=== PATIENT | female | born 1985 | race Caucasian/White ===

== ENCOUNTER 2021-02-17 09:10 | Outpatient (REF) | payer OTHER, SELFPAY | END 2021-02-17 09:11 | disposition home or self-care (01) | LOC: HO.HMGCLDS 09:10 | PROVIDERS: Visit Provider Internal Medicine | DX: Z20.822 Contact with and (suspected) exposure to COVID-19 (principal) | CPT/HCPCS: C9803; U0003; U0005 ==

== ENCOUNTER → 2021-08-06 09:24 | Outpatient (BNVA) | payer OTHER, SELFPAY | PROVIDERS: PCP Internal Medicine; Visit Provider Nurse Practitioner Family | DX: R20.0 Anesthesia of skin (principal); R20.2 Paresthesia of skin; M54.2 Cervicalgia; G43.109 Migraine with aura, not intractable, without status migrainosus; R29.898 Other symptoms and signs involving the musculoskeletal system | CPT/HCPCS: 99202 ==

== ENCOUNTER 2021-12-16 08:30 | Outpatient (REF) | payer OTHER, SELFPAY ==
--- NOTE | 2021-12-16 | EMG_ITS ---
Bilateral median and ulnar motor and sensory studies were performed. Bilateral radial and sensory studies were performed and paraspinal muscles were tested with a needle. IMPRESSION: This is an unremarkable study with no significant abnormality noted. MD TEJINDER Whitman/CAROLANN / [id number]
== END 2021-12-16 08:31 | disposition home or self-care (01) ==
LOC: HO.NEURO 08:30
PROVIDERS: Visit Provider Nurse Practitioner Family
DX: R20.0 Anesthesia of skin (principal); R20.2 Paresthesia of skin; R29.898 Other symptoms and signs involving the musculoskeletal system
CPT/HCPCS: 95886; 95911

== ENCOUNTER 2025-01-21 10:01 | Outpatient (AMB) | payer OTHER, SELFPAY ==
--- NOTE | 2025-01-21 10:04 | A.OFFVIS_ITS ---
Vital Signs 01/21/25 10:06 Height 5 ft 4 in BMI Reason not done Patient refused/unable BP 100/60 Blood Pressure Location Rt brachial Position Sitting Pulse 66 Pulse Source Pulse Oximeter Pulse Oximetry (%) 99 Oxygen Delivery Method Room Air Intake Visit Reasons: Hashimotos Intake Note: NEW Patient presents today to establish care for Hashimotos Disease: No acute complaints reported at this time. 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: No Accompanied by: Self / Same As Patient Allergies iodine Allergy (Verified 08/06/21 09:50) Unknown latex Allergy (Verified 08/06/21 09:50) Unknown oxycodone Allergy (Unverified 12/02/21 09:13) Unknown dairy Allergy (Uncoded 08/06/21 09:50) Unknown Medication List - Last Reconciled 01/21/25 by Jacoby Marin MD fexofenadine 180 mg PO DAILY fluticasone propionate 50 mcg/actuation 2 sprays intranasal QAM PRN thyroid (pork) ([place] Thyroid) 66 mg PO DAILY HPI Comments Details: Hypothyroidism Visit Visit type: New Reason for visit: Hypothyroidism HPI She was diagnosed with Sharron's thyroiditis at age 28, initially experienced fatigue, brain fog, and tiredness despite normal blood work. After endocrinological evaluation, hypothyroidism was confirmed, and patient was started on Synthroid with dose adjustments up to 88 mcg (she did endorse not tolarating generic levothyroxine). Symptoms improved, and patient was discharged to primary care. Recently, symptoms recurred, including fatigue, itchy cough, difficulty swallowing, hair loss, irregular menstrual cycles, and weight gain. Currently on [place] Thyroid, 66 mg for two months with some improvement but ongoing fatigue. Patient reports taking Vitamin D, C, and B vitamins. No recent lab updates since September. History includes irregular periods, stress from job change, and past medical issues like aneurysm, ovarian cysts, and uterine complications during childbirth. Associated Symptoms:Denies snoring, reports sleep talking. History of hair loss, weight gain (16 pounds since summer), and increased stress. Physical exam General: Normal appearance Neck: Normal thyroid size, no nodules, no tenderness Eyes: No proptosis, lid lag, or periorbital edema CV: RRR, no murmur. No edema. Resp: Lungs clear to auscultation bilaterally Skin/Hair: no dry skin, hair thinning, or pretibial myxedema Neuro: No tremor of outstretched hands, no weakness Data Review Labs from referral 10/26/2024 10:23 EDT BLOOD COUNT & DIFF WBC 4.7 RBC 4.2 Hgb 13.2 Hct 39.0 MCV 93 MCH 31.4 MCHC 33.7 Platelet Count 126 Abs. Neut 2.6 Abs. Lymph 1.5 Abs. [place] 0.3 Abs. Eos 0.1 Abs. Baso 0.0 % Neut 56 % Lymph 31 % [place] 10 % Eos 3 % Baso 1 Immature Grans 0 % Imm Grans 0.0 BLOOD CHEMISTRY Sodium 141 Potassium 4.2 Chloride 104 Bicarbonate Level 27 Glucose 90 BUN 12 Creatinine-Serum 0.70 Estimated GFR Creatinine 112 Calcium, Total 9.6 Albumin 4.5 Alkaline Phosphatase 46 AST (SGOT) 19 ALT (SGPT) 17 Total Bilirubin 0.5 Iron 51 Uric Acid 4.6 Iron Binding Capacity, Unsaturated 171 Iron Binding Capacity, Estimated Total 322 % Iron Saturation 16 BUN/Creat Ratio 17 ENDOCRINE/TUMOR MARKER TSH 2.190 2.220 Anti Thyroid Peroxidase Ab 36 H Free Testosterone, Bioavailable (ng/dL) 8.7 SHBG 60* Cortisol Level 61* Testosterone, Serum Total 11* Imaging: US previously done, not available for review [facility] Medical History (Updated 01/21/25 @ 11:50 by Jacoby Marin MD) History of Papanicolaou smear of cervix Weight gain Venous henning Uterine fibroid Tension headache Restless leg PCB (post coital bleeding) Panic attack Overweight Oligomenorrhea Migraine Lumbosacral disc herniation Labial hypertrophy Intracranial aneurysm Sharron thyroiditis Left groin mass History of gastroesophageal reflux (GERD) Gallbladder sludge Frequent headaches Food allergy Bunion Anxiety disorder Allergic rhinitis Acne Surgical History (Updated 01/14/25 @ 08:48 by HAILY Sweeney) History of esophagogastroduodenoscopy (EGD) Hx of colonoscopy Hx of dilation and curettage Hx of tonsillectomy Hx of section Hx of bilateral salpingectomy History of surgery Family History (Updated 01/14/25 @ 08:48 by HAILY Sweeney) Father Hyperlipidemia Mother No problems noted. 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 Patient currently on [place] Thyroid 66 mg with partial symptom improvement. but given that is a recent change of her medication, some adjustment in the dosing might still be required to achieve full benefit. Symptoms include fatigue, weight gain, and hair loss. She reports irregular menstrual cycles that appear to be long-standing issue, of unclear etiology but differentia;l includes possible gynecological or related to thyroid condition or other hormonal imbalances (PCOS, central hypogomadism, premature ovarian failure). Fatigue: is persistent despite thyroid treatment, possibly multifactorial including stress, sleep issues, or incomplete hormonal management. Plan: - Order thyroid function tests, including T3, T4, and TSH, to evaluate current thyroid status. - Test gonadotropins (LH, FSH) and estradiol levels to assess ovarian function. - Review MRI records related to the patient's aneurysm if available. - Arrange for the release and review of previous thyroid ultrasound results. - Discuss the possibility of a sleep study if fatigue persists after endocrine evaluation. - Advise patient to bring or photograph all supplements and medications for review at the next visit. - Schedule a follow-up appointment in two months to review lab results and assess the effectiveness of the current treatment plan. - Continue [place] Thyroid, advise taking on an empty stomach, possibly at night to avoid interference with other medications and supplements. - Address any lifestyle factors contributing to stress and fatigue, including considering counseling or stress management strategies. - Educate the patient on the importance of consistent medication adherence and proper timing for optimal absorption. Patient Instructions: - Continue taking [place] Thyroid as prescribed, away from other supplements or food. - Return for lab tests and follow-up as scheduled. - Monitor for any new or worsening symptoms and report them promptly. - Maintain a balanced diet and manage stress as best as possible. - Prepare for the possibility of additional tests or referrals based on upcoming lab results. 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
[2025-01-21 10:06] VITALS: BP 100/60; PULSE 66; O2SAT 99
--- OUTSIDE RECORDS SUMMARY | 2025-01-21 12:04 | XMS_ITS | Clinical Summary ---
Author Organization [facility] Address [address] [place] [address] Phone Care Team Providers Care Social Media Coordinator Name Role Phone Matilda Zamudio MD Primary Care Provider [phone] Allergies Active Allergy Reactions Criticality Noted Date Comments Amoxicillin-Pot Clavulanate Low 05/29/19 22 Other Reaction(s): Hives/Urticaria Latex 05/03/2019 Oxycodone 05/03/2019 Oxycodone-Acetaminophen Itching Low 05/28/2021 Medications ergotamine-caff eine (CAFERGOT) 1-100 mg per tablet Take 2 Tablets by mouth See Admin Instructions for 60 doses. Two tablets at onset of attack; then 1 tablet every 30 minutes as needed; maximum: 6 tablets per attack; do not exceed 10 tablets/week 3 Active LORazepam (ATIVAN) 0.5 mg tablet Take 0.5 mg by mouth every 6 hours as needed. Active omega-3 acid ethyl esters (LOVAZA) 1 gram capsule Take by mouth. Activ e selenium sulfide 2.3 % shampoo Apply topically. Act pavan ZINC SULFATE ORAL Zinc Sulfate 140 (50 Zn) MG Tab Sig - Route: Take by mouth. - Oral Active fluconazole (DIFLUCAN) 150 mg tablet Take 1 tablet weekly for 4 weeks 0 Active ketoconazole (NIZORAL) 2 % shampoo Lather in scalp and let sit for 10 minutes, then wash off. Use daily for the first week, then 1-2 times weekly thereafter 0 Active benzonatate (TESSALON) 100 mg capsule TAKE 1 CAPSULE BY MOUTH THREE TIMES A DAY FOR 7 DAYS NEEDED FOR COUGH 5 Active Synthroid 88 mcg tablet Take 1 tablet (88 mcg total) by mouth 1 (one) time each day. 4 Active loratadine (CLARITIN) 10 mg tablet Take 1 tablet (10 mg total) by mouth 1 (one) time each day. 5 Active Synthroid 112 mcg tablet 5 Active Active Problems Problem Noted Date Diagnosed Date JOSHUA (generalized anxiety disorder) 03/27/2024 GERD (gastroesophageal reflux disease) 5 Hypothyroidism 03/27/2024 RLS (restless legs syndrome) 03/27/2024 Cerebral aneurysm without rupture 05/28/2021 Overview (03/27/2024): Last Assessment & Plan: Ms. Galindo has had routine follow-up for this right MCA aneurysm for over 5 years. A positive family history is her only risk factor and this aneurysm has remained stable on all imaging including the most recent one 6 weeks ago. We discussed the natural history of an unruptured aneurysm of this size, the risk associated with rupture and the potential mode of treatment. She and Dr. Galvez had discussed an angiogram to determine if it was eligible for coiling but on this most recent high-quality MRA, I do not think it is amenable based on the wide neck and that the right M2 originates from the aneurysm. We are going to continue following this with yearly imaging and she is not interested in pursuing treatment at this time. Chronic bilateral low back pain with bilateral s ciatica 05/28/2021 Overview (03/27/2024): Last Assessment & Plan: Ms. Galindo is overwhelmed by this low back pain with paresthesias to her legs. She is failed physical therapy, has had 3 fairly recent epidural injections and continues to seek chiropractic treatment weekly. She could no longer tolerate doing her job as she would be in one position either sitting or standing for an hour or two at a time, was overwhelmed by the paresthesias in her legs so she quit her job last week. What she has described is not typical of a single level disc herniation or central stenosis. I suspect there is degenerative disc disease but the lumbar spine images are not currently available and I do not even have a report. Once we are able to review the images, I will contact her to come up with a plan. Encounters Date Type Department Care Team Description 11/04/2024 Telephone [facility] [place] [id number] [place] [address] Elvia Hernandez PA from Last 3 Months Surgical History Surgery Date Site/Laterality Comments SALPINGOOPHORECTOMY PROCEDURE: ME LAPAROSCOPY W/RMVL ADNEXAL STRUCTURES SECTION PROCEDURE: HISTORICAL TONSILLECTOMY PROCEDURE: HISTORICAL TONSILLECTOMY SALPINGOOPHORECTOMY PROCEDURE: ME LAPAROSCOPY W/RMVL ADNEXAL STRUCTURES Medical History Medical History Date Comments JOSHUA (generalized anxiety disorder) DX:JOSHUA (generalized anxiety disorder) GERD (gastroesophageal reflux disease) DX:GERD (gastroesophageal reflux disease) Hypothyroidism DX:Hypothyroidis m RLS (restless legs syndrome) DX: RLS (restless legs syndrome) Restless leg syndrome DX:Restles s leg syndrome Social History Tobacco Use Types Packs/Day Years Used Date Smoking Tobacco: Never Smokeless Tobacco: Never Comments Unknown Sex and Gender Information Value Date Recorded Sex Assigned at Female 05/17/2024 10:40 AM EDT Legal Sex Female 7:24 AM EST Gender Identity Female 05/17/2024 10:40 AM EDT Sexual Orientation Straight 05/17/2024 10 :40 AM EDT Obstetrics History Last Filed Vital Signs Vital Sign Reading Time Taken Comments Blood Pressure - - Pulse - - Temperature - - Respiratory Rate - - Oxygen Saturation - - Inhaled Oxygen Concentration - - Weight 68.9 kg (152 lb) 04/19/2024 11:32 AM EST Height 162.6 cm (5' 4 ) 04/19/2024 11:32 AM EST Body Mass Index 26.09 04/19/2024 11:32 AM EST Plan of Treatment Health Maintenance Due Date Last Done Comments Breast Cancer Screening 1984 Hepatitis B Vaccines (1 of 3 - 19+ 3-dose series) 09/05/2003 Cervical Cancer Screening: P ap Smear 2005 HPV Vaccines (1 - 3-dose SCD M series) 09/05/2011 HIV Screening 01/30/2022 Hepatitis C Screening 01/30/2022 Social Influencers of Health Screening 01/30/2022 DTaP,Tdap,and Td Vaccines (2 - Td or Tdap) 08/20/2022 08/20/2012 Depression Screening 02/28/2024 COVID-19 Vaccine (1 - 2024-2 6 season) 2024 Influenza Vaccine (#1) 2024 RSV Immunization Adult Patie nts (1 - 1-dose 75+ series) 09/05/2059 HIB Vaccines Aged Out No longer eligi ble based on patient's age to complete this topic Hepatitis A Vaccines Aged Out No long er eligible based on patient's age to complete this topic IPV Vaccines Aged Out No longer eligi ble based on patient's age to complete this topic MMR Vaccines Aged Out No longer eligi ble based on patient's age to complete this topic Meningococcal ACWY Vaccine Aged Out N o longer eligible based on patient's age to complete this topic Meningococcal B Vaccine Aged Out No l onger eligible based on patient's age to complete this topic Pneumococcal Vaccine: Pediat rics (0 to 5 Years) and At-Risk Patients (6 to 49 Years) Aged Out No longer eligi ble based on patient's age to complete this topic RSV Immunization Patients Un lela 20 months Aged Out No longer eligible b ased on patient's age to complete this topic Varicella Vaccines Aged Out No longer eligible based on patient's age to complete this topic Insurance [facility] [address] [place] [address] Care Teams Social Media Coordinator Relationship Specialty Start Date End Date Matilda Zamudio MD [address] [place] [id number] PCP - General Internal Medicine 10/12/18
== END 2025-01-21 10:58 | disposition home or self-care (01) ==
PROVIDERS: PCP Internal Medicine; Visit Provider Student in an Organized Health Care Education/Training Program
DX: E06.3 Autoimmune thyroiditis (principal)
CPT/HCPCS: 99204; G2211

== ENCOUNTER 2025-01-21 11:09 | Outpatient (REF) | payer OTHER, SELFPAY ==
[2025-01-21 16:28] LABS: Free T4 (Free Thyroxine) 0.82 ng/dL (0.71-1.85)
[2025-01-22 04:08] LABS: Follicle Stimulating Hormone 5.1 mIU/mL
[2025-01-26 06:43] LABS: Estradiol Ultra Sensitive 20 pg/mL
== END 2025-01-21 11:10 | disposition home or self-care (01) ==
LOC: HO.10HDL 11:09
PROVIDERS: Visit Provider Student in an Organized Health Care Education/Training Program
DX: E06.3 Autoimmune thyroiditis (principal)
CPT/HCPCS: 36415; 82670; 83001; 83002; 84439; 84443; 84480